=== PATIENT | male | born 1960 | race Caucasian/White ===

== ENCOUNTER 2018-12-08 07:27 | Emergency (ER) | payer MEDICARE ==
[~2018-12-08] VITALS: Ht 175.3 cm; Wt 142.0 kg
[2018-12-08 07:31] VITALS: BP 126/96
[2018-12-08] MEDS ORDERED: CLIN150C2 PO (08:13)
[2018-12-09] MEDS ORDERED: METH4TAB81 PO (13:32)
[2018-12-09] MEDS ORDERED: AMLO5TAB PO (13:32)
== END 2018-12-08 08:23 | disposition home or self-care (01) ==
LOC: ER 07:27
DX: L02.416 Cutaneous abscess of left lower limb (principal); Z79.899 Other long term (current) drug therapy
CPT/HCPCS: 99283

== ENCOUNTER 2018-12-09 09:08 | Emergency (ER) | payer MEDICARE ==
[~2018-12-09] VITALS: Ht 175.3 cm; Wt 13.6 kg
[~2018-12-09 09:08] MED LIST: CLIN150C2 PO
[2018-12-09] MEDS ORDERED: methylPREDNISolone sod succ 125mg/2ml vial IV ONE (11:15)
[2018-12-09] MEDS ORDERED: epiNEPHrine 1 mg/ml inj SQ ONE (11:15)
[2018-12-09] MEDS ORDERED: diphenhydrAMINE 50 mg/ml inj IV ONE (11:15)
[2018-12-09 12:54] VITALS: BP 136/91
[2018-12-09] MEDS ORDERED: METH4TAB81 PO (13:32)
[2018-12-09] MEDS ORDERED: AMLO5TAB PO (13:32)
== END 2018-12-09 14:07 | disposition home or self-care (01) ==
LOC: ER 09:09
DX: T78.3XXA Angioneurotic edema, initial encounter (principal); I10 Essential (primary) hypertension; Z79.2 Long term (current) use of antibiotics
CPT/HCPCS: 96372; 96374; 96375; 99283; J0171; J1200; J2930

== ENCOUNTER 2021-12-27 06:03 | Emergency (ER) | payer MEDICARE ==
[~2021-12-27] VITALS: Ht 175.3 cm; Wt 109.1 kg
[~2021-12-27 06:03] MED LIST changes: +AMLO5TAB PO; -CLIN150C2 PO; +METH4TAB81 PO
[2021-12-27 06:12] VITALS: BP 154/97
== END 2021-12-27 06:40 | disposition home or self-care (01) ==
LOC: ER 06:04
DX: K56.41 Fecal impaction (principal); I10 Essential (primary) hypertension; Z79.899 Other long term (current) drug therapy
CPT/HCPCS: 99284